=== PATIENT | female | born 1965 | race Caucasian/White ===

== ENCOUNTER 2023-05-23 20:18 | Emergency (ER) | payer MEDICAID ==
[~2023-05-23] VITALS: Ht 152.4 cm; Wt 68.2 kg
[2023-05-23 21:36] VITALS: BP 184/98; PULSE 109; RESP 18; TEMP 98.2; O2SAT 97
[2023-05-23] MEDS ORDERED: HYDROcodone/acetaminophen 10/325mg tab PO ONE (23:30)
[2023-05-23] MEDS ORDERED: orphenadrine citrate 60mg/2ml inj. IM ONE (23:30)
[2023-05-23] MEDS ORDERED: diphenhydrAMINE 25mg capsule PO ONE (23:30)
[2023-05-23] MEDS ORDERED: HYDR-3973 PO (23:33)
== END 2023-05-23 23:50 | disposition home or self-care (01) ==
LOC: ER 20:20
DX: G89.29 Other chronic pain (principal); M25.552 Pain in left hip; M25.572 Pain in left ankle and joints of left foot; Z88.8 Allergy status to other drugs, medicaments and biological substances; Z79.899 Other long term (current) drug therapy; Z96.641 Presence of right artificial hip joint
CPT/HCPCS: 96372; 99283; J2360; Q0163